=== PATIENT | male | born 1985 | race Caucasian/White ===

== ENCOUNTER 2025-05-04 11:49 | Outpatient (REF) | payer OTHER, SELFPAY ==
--- OUTSIDE RECORDS SUMMARY | 2025-05-04 12:35 | XMS_ITS | Clinical Summary ---
Author Organization [facility] Address [address] [place] [address] Care Team Providers Care Theatrical Dresser Name Role Phone Unavailable Primary Care Provider Unavailabl e Social History Tobacco Use Types Packs/Day Years Used Date Smoking Tobacco: Never Assessed Sex and Gender Information Value Date Recorded Sex Assigned at Not on file Gender Identity Not on file Sexual Orientation Not on file Job Start Date Occupation Industry Not on file Not on file Not on file Last Filed Vital Signs Vital Sign Reading Time Taken Comments Blood Pressure - - Pulse 104 03/26/2021 1:41 PM EDT Temperature 36.7 C (98 F) 03/26/2021 1:41 PM EDT Respiratory Rate 16 03/26/2021 1:41 PM EDT Oxygen Saturation 98% 03/26/2021 1:41 PM EDT Inhaled Oxygen Concentration - - Weight - - Height - - Body Mass Index - - Plan of Treatment Health Maintenance Due Date Last Done Comments Hepatitis B Vaccines (1 of 3 - 3-dose series) 1987 Hepatitis C Screening 1987 COVID-19 Vaccine (#1) 1987 Depression Screening 1999 Preventative Health Evaluation 2005 DTap / Tdap / Td (1 - Tdap) 2006 Influenza Vaccine (#1) 2025 Pneumococcal Vaccine Aged Out No long er eligible based on patient's age to complete this topic RSV Ped < 20 months Aged Out No longe r eligible based on patient's age to complete this topic
--- OUTSIDE RECORDS SUMMARY | 2025-05-04 12:35 | XMS_ITS | Clinical Summary ---
Author Organization [facility] Address [address] [place] [address] Care Team Providers Care Tv Host Name Role Phone Mei Parker MD Primary Care Provider [phone] Allergies Active Allergy Reactions Criticality Noted Date Comments Cefadroxil Rash Low 11/06/2011 Fentanyl Hallucinations High 10/31/2023 Tree Nut Other (see comments) 11/01/2023 Pt states he has never been tested for a reaction to them but states his mother has such a bad reaction to them that they stay away from tree nuts as a family. Medications clobetasoL (TEMOVATE) 0.05% cream Apply topically to the affected area 2 times a day. 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 MRCP on 11/01 showed pancreatitis in body and tail w/ associated hemorrhage and acute necrotic collection in prepancreatic space, splenic vein thrombosis, nonvisualization of distal pancreatic duct ? Discontinuity. Biliary team consulted for ERCP and possible PD stent; procedure ultimately deferred per patient and biliary shared decision making as he was feeling interval improvement. -CTAP: Large right and medium left pleural effusion, severe pancreatitis, loculated fluid collections in the peripancreatic region including along adjacent to the gastric wall - continue zosyn for now - Will need to discuss with GI if needs to continue on po abx when ready for discharge - Tolerating po diet - Pain control: PO oxy 10-15 q3h prn - Scheduled tylenol for pain - miralax two times a day Alcohol use disorder 10/31/2023 Assessment & Plan (11/04/2023 12:02 PM EDT): Reported daily alcohol drinking (hard malt) at home. Was on CIWA protocol at OSH. No signs of withdrawal at [facility] - Social work consult - Consider Addiction psych if amenable Resolved Problems Problem Noted Date Diagnosed Date Resolved Date Pleural effusion 11/08/2023 08/24/2024 Assessment & Plan (11/08/2023 5:16 PM EDT): CTAP with large R pleural effusion, medium left pleural effusion. Underwent thoracentesis 11/07 with 1.2L serosanguineous fluid aspirated. - Pending CXR post thoracentesis Acute hypoxic respiratory failure 11/04/2023 08/24/2024 Assessment & Plan (11/08/2023 11:38 AM EDT): Initially admitted to ICU due to requiring BiPAP. CXR on admission showed low lung volumes with basilar under aeration and consolidation collapse of LLL. He was treated empirically treated for pneumonia in the ICU with zosyn (10/30-11/04). Now weaned to 6L. Pt was continuing to have shortness of breath and was spot dosed with 20 IV lasix on 11/03. Repeat CXR did not show much improvement. CTAP ON 11/07: large R pleural effusion, medium left pleural effusion. Patient continues to be on NC and reported to desat to 83 with minimal movement to commode. - Pulmonary consulted, appreciate recommendations - Restart zosyn 11/06 - Continue to wean oxygen as able - Spot dose Lasix IV - Maintain [id number] Encounters Date Type Department Care Team Description 03/15/2025 Orders Only [facility] [address] [place] [address] Mellisa Bates NP 03/14/2025 Orders Only [facility] [address] [place] [address] eMllisa Bates NP 02/26/2025 Results Follow-Up [facility] [address] [place] [id number] Gambling Monitor: Barbara Chappell MD 02/13/2025 1:30 PM EDT Procedure visit [facility] [address] [place] [id number] Gambling Monitor: Mehnaz Chávez RN Hereditary hemochromatosis from Last 3 Months Immunizations Immunization Administration Dates Next Due Covid-19 Monovalent Vaccine, Moderna, mRNA, PF 10/10/2020 Covid-19 Vaccine, J&J, Vecto r-nr, Rs-ad26, PF, 0.5 mL 05/23/2021 Diphtheria, Tetanus Toxoids and Acellular Pertussis Vaccine 07/08/1992,01/19/1989,06/01/1988,01/02,1987 Haemophilus Influenzae Type B Vaccine, Conjugate Unspecified Formulation 01/19/1989 Hep B, Unspecified 01/10/2001,05/17/2000, 000 Measles, Mumps, and Rubella Vaccine 09/11/1998,0 10/26/1988 Meningococcal Polysaccharide Vaccine (MPSV4) 10/16/2005 Poliovirus Vaccine, Inactivated 07/08/18 93,01/19/1989,01/03/1988,10/22 Tetanus Toxoid, Unspecified Formulation 10/02/2004,07/04/1999 Family History Medical History Relation Name Comments Neuropathy Brother Hyperlipidemia Father Hypertension Father Hyperlipidemia Mother Hypertension Mother Liver cancer Paternal Grandfather Relation Name Status Comments Brother Alive Father Alive Maternal Grandfather Alive Maternal Grandmother old age Mother Alive Paternal Grandfather kidney cancer Paternal Grandmother old age Social History Tobacco Use Types Packs/Day Years Used Date Smoking Tobacco: Never Passive Smoke Exposure: Never Smokeless Tobacco: Never Tobacco Cessation:Counseling Given: Not Answered Alcohol Use Standard Drinks/Week Comments Not Currently 35 (1 standard drink = 0.6 oz pu re alcohol) no currently [employer] Utilities Answer Date Recorded In the past 12 months has th e [employer], gas, oil, or water [employer] threatened to shut off services in your home? No 11/26/2023 Hunger Vital Sign Answer Date Recorded Within the past 12 months, y ou worried that your food would run out before you got the money to buy more. Never true 11/26/19 24 Within the past 12 months, t he food you bought just didn't last and you didn't have money to get more. Never true 11/26/2023 Transportation Answer Date Recorded In the past 12 months, has l ack of reliable transportation kept you from medical appointments, meetings, work or from getting things needed for daily living? No 11/26/2023 Housing Answer Date Recorded Housing Risk Low 2 11/26/2023 Housing Risk Medium Not on file 11/26/2023 Housing Risk High Not on file 11/26/2023 What is your living situation today? LSSTEADY 11/26/2023 Sex and Gender Information Value Date Recorded Sex Assigned at Male 11/21/2023 1:07 PM EDT Legal Sex Male 3:25 PM EDT Gender Identity Male 11/21/2023 1:07 PM EDT Sexual Orientation Straight 11/21/2023 1: 07 PM EDT Last Filed Vital Signs Vital Sign Reading Time Taken Comments Blood Pressure 130/86 12/12/2024 10:59 AM EDT Pulse 83 12/12/2024 10:59 AM EDT Temperature 36.6 C (97.9 F) 12/12/2024 10:59 AM EDT Respiratory Rate 18 10/25/2024 2:52 PM EDT Oxygen Saturation 98% 12/12/2024 10: 59 AM EDT Inhaled Oxygen Concentration - - Weight 101.2 kg (223 lb 1.7 oz) 02/13/2025 1:24 PM EDT Height 174.3 cm (5' 8.62 ) 04/26/2024 8:14 AM ES T Body Mass Index 33.31 04/26/2024 8:14 AM EST Plan of Treatment Upcoming Encounters Date Type Department Care Team (Late st Contact Info) Description 12/21/2025 11:00 AM EDT Telehealth [facility] [address] [place] [address] Mellisa Bates NP [address], [place] [id number] Health Maintenance Due Date Last Done Comments HIV Screening 1987 Varicella Vaccines (1 of 2 - 13+ 2-dose series) 2000 DTaP,Tdap,and Td Vaccines (6 - Tdap) 06/15/2004 06/14/2004, 07/08/1992, 01/19/1989, Additional history exists Depression Screening and Follow-Up 06/14/2024 11/26/2023 Social Drivers of Health Annual Screening 06/14/2024 Influenza Vaccine (#1) 2025 COVID-19 Vaccine (3 - season) 2025 05/23/2021, 10/10/2020 Hepatitis B Vaccines Completed 01/10/2001, 05/17/2000, 04/15/2000 Diabetes Screening Discontinued 11/09/2023, 0 11/08/2023, 11/07/2023, Additional history exists Hepatitis C Screening Completed 04/11/2024 Alcohol/Substance Use Screening Completed 12/12/2024 Pneumococcal Vaccine: Pediatric (0-5 Years) and At-Risk Patients (6-50 Years) Aged Out No longer eligible based on patient's age to complete this topic Procedures * Due to [place] state law, this organization might not be sharing negative HIV tests. Procedure Name Priority Date/Time Associated Diagnosis Comments TRANSIENT ELASTOGRAPHY Routine 02/13/2025 12:19 PM EDT Hereditary hemochromatosis HEPATITIS C ANTIBODY W/REFLEX TO HCV RNA, QUANTITATIVE PCR Routine 04/11/2024 9:09 AM EDT Encounter for hepatitis C screening test for low risk patient BASIC METABOLIC PANEL Routine 11/09/2023 5:26 AM EDT from Last 3 Months or Most Recently Relevant to Health Maintenance Results * Due to [place] state law, this organization might not be sharing negative HIV tests. * (ABNORMAL) Transient Elastography (Fibroscan) (02/13/2025 12:19 PM EDT) CAP 337(H) 90 - 248 dB/m [facility] Comment:S0 < 5% fat depositi on; S1 5-33% fat deposition; S2 34-66% fat deposition; S3 >66% fat deposition; Stiffness 3.6 1.47 - 7.0 kPa [facility] Comment:F0 No fibrosis; F1 m ild fibrosis; F2 moderate fibrosis; F3 severe fibrosis; F4 cirrhosis; CAP IQR 45 [facility] E IQR 0.3 [facility] IQR/Median Ratio 7 [facility] Carton Making Machinist Name Ade VIVEROS F[facility]ROS[facility] Probe Size XL [facility] 02/13/2025 12:1 9 PM EDT Narrative [facility] - 02/13/2025 12:19 PM EDT Patient with hereditary hemochromatosis and hepatic steatosis S3 steatosis F0 fibrosis Barbara Sweeney MD GI PROCEDURE ORDERABLES Final Result [facility] * Hepatitis C Antibody w/Reflex to HCV RNA, Quantitative PCR (04/11/2024 9:09 AM EDT) Pathologist [facility] Hepatitis C Antibody NON-REACT RASHARD NON-REACT RASHARD 04/11/2024 6:03 PM EDT [facility] [facility] Comment: HCV antibody was non-reactive. There is no laboratory evidence of HCV infection. In most cases, no further action is required. However, if recent HCV exposure is suspected, a test for HCV RNA (test code 25845) is suggested. For additional information please refer to http://education.Instaradio/faq/FSF42h0 (This link is being provided for informational/ educational purposes only.) Blood Structure of peripheral vein / Unknown Venipuncture / Unknown 04/11/2024 9:09 AM EDT 04/11/2024 9:42 AM EDT Narrative [facility] - 04/11/2024 6:03 PM EDT [facility] Received Date: us Mei Parker MD LAB BLOOD ORDERABLES Final Resul t [facility] [address] [facility] [address], [place] [address], [place] [phone] [employer] [facility] [address], [place] [address], [place] [phone] * (ABNORMAL) Basic Metabolic Panel (11/09/2023 5:26 AM EDT) NA 138 135 - 145 mmol/L 11/09/2023 6:13 AM EDT [email or web address] K 4.1 3.5 - 5.3 mmol/L 11/09/2023 6:13 AM EDT [email or web address] Cl 102 97 - 110 mmol/L 11/09/2023 6:13 AM EDT [email or web address] CO2 28 24 - 32 mmol/L 11/09/2023 6:13 AM EDT [email or web address] BUN 8 7 - 23 mg/dL 11/09/2023 6:13 AM EDT [email or web address] Creatinine 0.84 0.60 - 1.30 mg/dL 11/09/2023 6:13 AM EDT [email or web address] Glucose 112(H) 70 - 99 mg/dL 11/09/2023 6:13 AM EDT [email or web address] Calcium 9.0 8.7 - 10.7 mg/dL 11/09/2023 6:13 AM EDT [email or web address] Anion Gap 8 5 - 15 11/09/2023 6:13 AM EDT [email or web address] eGFR >90 >=60 mL/min/1. 73m2 11/09/2023 6:13 AM EDT [facility] Comment:The estimated glomer ular filtration rate (eGFR) is calculated using a new formula developed by the NKF-ASN task force to eliminate race-based correction factors. The new formula uses serum/plasma creatinine, age, and gender to determine eGFR. A value below 60mls/min might indicate kidney disease and will be flagged. For additional information, see Aniya et al, Am J Kidney Dis. 2021;79(2):268- 288, A Unifying Approach for GFR estimation: Recommendations of the NKF-ASN Task Force on Reassessing the Inclusion of Race in Diagnosing Kidney Disease . Blood Implantable venous catheter submitted as specimen / Unknown Venipuncture / Unknown 11/09/2023 5:26 AM EDT 11/09/2023 5:43 AM EDT us Marcella Godinez MD LAB BLOOD ORDERABLES Final R esult [facility] [address] [place] [address], from Last 3 Months or Most Recently Relevant to Health [id number] [facility] Advance Directives Documents on File Type Date Recorded Patient Space Systems Operations Manager Expl [facility] Health Care Proxy 11/01/2023 1:25 PM 05-20 -2024 * Full Code (Latest Code Status on File) Date Activated Date Inactivated Comments 10/31/2023 7:57 AM 11/09/2023 6:09 PM * Presumed Full Code Date Activated Date Inactivated Comments 10/31/2023 5:46 AM 10/31/2023 7:57 AM Healthcare Agents on File Name Relationship Healthcare Agent Relationshi p Communication Magdalena Dasilva Spouse Health Care Agent Care Teams Tv Host Relationship Specialty Start Date End Date Mei Parker MD [address] [place] [address] PCP - General Internal Medicine 11/22/23
--- OUTSIDE RECORDS SUMMARY | 2025-05-04 12:35 | XMS_ITS | Clinical Summary ---
Author Organization [facility] Address [address] [place] [address] Care Team Providers Care New Car Make Ready Mechanic Name Role Phone Cesar Oneal DO Primary Care Provider + Social History Tobacco Use Types Packs/Day Years Used Date Smoking Tobacco: Never Assessed Sex and Gender Information Value Date Recorded Sex Assigned at Not on file Legal Sex Male 7:36 PM EST Gender Identity Not on file Sexual Orientation Not on file Plan of Treatment Health Maintenance Due Date Last Done Comments DTaP,Tdap,and Td Vaccines (1 - Tdap) 2006 Hepatitis B Vaccines (1 of 3 - 19+ 3-dose series) 2006 HPV Vaccines (1 - 3-dose SCD M series) 2014 Cholesterol Screening (Lipid Panel) 05/16/2022 HIV Screening 05/16/2022 Hepatitis C Screening 05/16/2022 Social Influencers of Health Screening 05/16/2022 Depression Screening 06/14/2024 COVID-19 Vaccine ( - 2024-2 6 season) 2025 Influenza Vaccine (#1) 2025 RSV Immunization Adult Patie nts (1 - 1-dose 75+ series) 2062 HIB Vaccines Aged Out No longer eligi ble based on patient's age to complete this topic Hepatitis A Vaccines Aged Out No long er eligible based on patient's age to complete this topic IPV Vaccines Aged Out No longer eligi ble based on patient's age to complete this topic MMR Vaccines Aged Out No longer eligi ble based on patient's age to complete this topic Meningococcal ACWY Vaccine Aged Out N o longer eligible based on patient's age to complete this topic Meningococcal B Vaccine Aged Out No l onger eligible based on patient's age to complete this topic Pneumococcal Vaccine: Pediat rics (0 to 5 Years) and At-Risk Patients (6 to 49 Years) Aged Out No longer eligible b ased on patient's age to complete this topic RSV Immunization Patients Un lyudmila 20 months Aged Out No longer eligible b ased on patient's age to complete this topic Varicella Vaccines Aged Out No longer eligible based on patient's age to complete this topic Care Teams New Car Make Ready Mechanic Relationship Specialty Start Date End Date Cesar Oneal DO [facility]. [address] [place] [id number] PCP - General Internal Medicine 02/21/21
--- OUTSIDE RECORDS SUMMARY | 2025-05-04 12:35 | XMS_ITS | Encounter Summary ---
Author Organization [facility] Address [address] [place] [address] Care Team Providers Care Print Line Feeder Name Role Phone Mei Parker MD Primary Care Provider [phone] Encounter Details Date Type Department Care Team (Late st Contact Info) Description 02/26/2025 Results Follow-Up [facility] [address] [place] [phone] Heavy Media Operator: Barbara Chappell MD [address] [place] [phone] Social History Tobacco Use Types Packs/Day Years Used Date Smoking Tobacco: Never Passive Smoke Exposure: Never Smokeless Tobacco: Never Alcohol Use Standard Drinks/Week Comments Not Currently 35 (1 standard drink = 0.6 oz pu re alcohol) no currently [facility] Utilities Answer Date Recorded In the past 12 months has e [employer], gas, oil, or water [employer] threatened to shut off services in your [...] Orientation Straight 11/21/2023 1: 07 PM EDT documented as of this encounter Plan of Treatment Upcoming Encounters Date Type Department Care Team (Late st Contact Info) Description 12/21/2025 11:00 AM EDT Telehealth [facility] [address], [place] [phone] Mellisa Bates NP [address] [place] [address] documented as of this encounter Visit Diagnoses Not on filedocumented in this encounter Care Teams Print Line Feeder Relationship Specialty Start Date End Date Mei Parker MD [address] [place] [address] PCP - General Internal Medicine 11/22/23 documented as of this encounter
== END 2025-05-04 11:50 | disposition home or self-care (01) ==
LOC: HO.BBR 11:49
PROVIDERS: Visit Provider Nurse Practitioner
DX: Z13.89 Encounter for screening for other disorder (principal)